=== PATIENT | female | born 2000 | race Asian ===

== ENCOUNTER 2022-05-02 14:06 | Outpatient (CLI) | payer BC, SELFPAY ==
--- OUTSIDE RECORDS SUMMARY | 2022-05-02 14:09 | XMS_ITS | Continuity of Care Document ---
:2002 Author Organization [facility] Care Team Providers Name Role Phone [facility] Unavailable Unavailable Social History Combined list of available smoking, tobacco, and other social history from [facility] of Defense and[facility]eter[facility] Affairs facilities. Social History Type Response Date Comment Source This section is an empty social history section. DoD
[2022-05-02 16:25] LABS: Vitamin D 25 Hydroxy* 32 ng/mL (30-80)
== END 2022-05-02 14:07 | disposition home or self-care (01) ==
LOC: NFLDREF 14:07
PROVIDERS: Visit Provider Nurse Practitioner Family
DX: Z79.899 Other long term (current) drug therapy (principal); F31.9 Bipolar disorder, unspecified
CPT/HCPCS: 82306

== ENCOUNTER 2022-07-24 15:13 | Outpatient (CLI) | payer BC, SELFPAY ==
[2022-07-24 17:37] LABS: HCG Qualitative Serum* Negative (Negative)
[2022-07-24 18:06] LABS: Vitamin D 25 Hydroxy* 16 ng/mL (30-80)
[2022-07-24 18:19] LABS: Hepatitis B Surface Antigen* Negative (Negative)
[2022-07-24 18:28] LABS: HIV 1/2/P24 Combo Screen* Negative (Negative)
[2022-07-24 18:36] LABS: Hepatitis C Virus Antibody* Negative (Negative)
[2022-07-24 18:57] LABS: Chlamydia DNA Amplified* NOT DETECTED (No Detected); GC DNA Amplified* NOT DETECTED (No Detected)
[2022-07-27 00:45] LABS: Rapid Plasma Reagin (RPR) Non Reactive (Non Reactive)
== END 2022-07-24 15:14 | disposition home or self-care (01) ==
PROVIDERS: Visit Provider Physician Assistant
DX: R63.5 Abnormal weight gain (principal); R79.89 Other specified abnormal findings of blood chemistry; N39.0 Urinary tract infection, site not specified; Z11.3 Encounter for screening for infections with a predominantly sexual mode of transmission; Z79.899 Other long term (current) drug therapy
CPT/HCPCS: 82306; 84703; 86592; 86703; 86803; 87340; 87491; 87591

== ENCOUNTER 2022-07-25 10:54 | Outpatient (CLI) | payer BC, SELFPAY | END 2022-07-25 10:55 | disposition home or self-care (01) | PROVIDERS: Visit Provider Physician Assistant | DX: R10.2 Pelvic and perineal pain; N39.0 Urinary tract infection, site not specified | CPT/HCPCS: 86592; 87086; 87186 ==

== ENCOUNTER 2022-12-08 16:07 | Outpatient (CLI) | payer BC, SELFPAY ==
[2022-12-08 22:08] LABS: Chlamydia DNA Amplified* NOT DETECTED (No Detected); GC DNA Amplified* NOT DETECTED (No Detected)
== END 2022-12-08 16:08 | disposition home or self-care (01) ==
PROVIDERS: Visit Provider Obstetrics & Gynecology
DX: Z11.3 Encounter for screening for infections with a predominantly sexual mode of transmission (principal)
CPT/HCPCS: 0353U; 86592; 86703; 86706; 86803; 87340; 87491; 87591

== ENCOUNTER 2022-12-14 11:10 | Outpatient (CLI) | payer BC, SELFPAY | END 2022-12-14 11:11 | disposition home or self-care (01) | LOC: NFLDREF 12-15 04:41 | PROVIDERS: Visit Provider Nurse Practitioner Family | DX: Z79.899 Other long term (current) drug therapy (principal) | CPT/HCPCS: 80053; 80061; 82306; 84443 ==

== ENCOUNTER 2023-05-04 10:28 | Outpatient (CLI) | payer BC, SELFPAY ==
[2023-05-04 14:45] LABS: Chlamydia DNA Amplified* NOT DETECTED (No Detected); GC DNA Amplified* NOT DETECTED (No Detected)
== END 2023-05-04 10:29 | disposition home or self-care (01) ==
LOC: NFLDREF 10:31
PROVIDERS: Visit Provider Physician Assistant
DX: N89.8 Other specified noninflammatory disorders of vagina (principal)
CPT/HCPCS: 87491; 87591

== ENCOUNTER 2023-05-29 14:09 | Outpatient (CLI) | payer BC, SELFPAY | END 2023-05-29 14:10 | disposition home or self-care (01) | PROVIDERS: Visit Provider Physician Assistant | DX: R79.89 Other specified abnormal findings of blood chemistry (principal); Z11.3 Encounter for screening for infections with a predominantly sexual mode of transmission | CPT/HCPCS: 82306; 86592; 86703; 86803; 87340; 87491; 87591 ==

== ENCOUNTER 2023-09-25 15:56 | Outpatient (CLI) | payer BC, SELFPAY ==
--- OUTSIDE RECORDS SUMMARY | 2023-09-25 15:59 | XMS_ITS | Continuity of Care Document ---
Author Name [facility] Organization [facility] Care Team Providers Care Upward Bound Director Name Role Phone [facility] Unavailable Unavailable Social History Combined list of available smoking, tobacco, and other social history from Department of Defense and Veterans Affairs facilities. Social History Type Response Date Comment Sourc e This section is an empty social history section. DoD
--- OUTSIDE RECORDS SUMMARY | 2023-09-25 15:59 | XMS_ITS | Clinical Summary ---
Author Name Unknown Organization [facility] Address [place], [place] [address] Care Team Providers Care Professor Of Environmental Studies Name Role Phone LucJosselyn to Silvina VIRAMONTES Primary Care Provider Allergies No known active allergies Medications Medication Sig Dispensed Refills Start Date End Date Status norethin malik-eth estrad-fe, 1-20 mg-mcg, (LOESTRIN FE 09/15; JUNEL FE 09/15) tablet 0 Active buPROPion (WELLBUTRIN SR) 100 mg Sustained-Release tablet Take 1 Tablet (100 mg) by mouth two times daily. 0 05/03/2022 Active ARIPiprazole (Abilify) 10 mg tablet Take 1 Tablet (10 mg) by mouth once daily. 0 05/03/2022 Active Social History Tobacco Use Types Packs/Day Years Used Date Smoking Tobacco: Never Smokeless Tobacco: Never Tobacco Cessation:Counseling Given: Yes Social Connections Answer Date Recorded Frequency of Communication with Friends and Fami ly Not on file 05/03/2022 Sex and Gender Information Value Date Recorded Sex Assigned at Not on file Gender Identity Not on file Sexual Orientation Not on file Obstetrics History Last Filed Vital Signs Vital Sign Reading Time Taken Comments Blood Pressure 116/60 05/03/2022 1:33 PM CDT Pulse 89 05/03/2022 1:33 PM CDT Temperature - - Respiratory Rate - - Oxygen Saturation 99% 05/03/2022 1:33 PM CDT Inhaled Oxygen Concentration - - Weight 51.1 kg (112 lb 9.6 oz) 05/03/2022 1:33 P M CDT Height - - Body Mass Index - - Plan of Treatment Health Maintenance Due Date Last Done Comments HPV series for age 9-26 (1 - 2-dose series) 2013 Tdap 2013 Depression screening for age 12+ 2014 HIV for age 15-65 2017 Chlamydia for age 16-24 2018 BMI (ht and wt on same day) for age 18+ 2020 Hepatitis C screening for ag e 18-79 2020 Tetanus booster 2022 COVID-19 vaccine series ( season) 2023 08/07/2021 Influenza for age 9-49 04/27/2023 Pap test for age 21-65 2023 Meningococcal series for age 11-21 Aged Out No longer eligible based on patient's age to complete this topic Pneumococcal series for age 6-64 Aged Out No longer eligible based on patient's age to complete this topic Care Teams Professor Of Environmental Studies Relationship Specialty Start Date End Date Josselyn Coyle CNM [address] [place] [address] PCP - General Certified Nurse Sales Engineer Account Manager 05/03/22
[2023-09-25 21:59] LABS: Chlamydia DNA Amplified* Not Detected (No Detected); GC DNA Amplified* Not Detected (No Detected)
== END 2023-09-25 15:57 | disposition home or self-care (01) ==
PROVIDERS: Visit Provider Physician Assistant
DX: Z11.3 Encounter for screening for infections with a predominantly sexual mode of transmission (principal)
CPT/HCPCS: 86592; 86703; 86803; 87340; 87491; 87591

== ENCOUNTER 2023-12-26 15:50 | Outpatient (CLI) | payer BC, SELFPAY ==
--- OUTSIDE RECORDS SUMMARY | 2023-12-26 15:53 | XMS_ITS | Clinical Summary ---
Author Name Unknown Organization [facility] Address [place], [place] [address] Care Team Providers Care Pension Consultant Name Role Phone Josselyn Coyle Silvina VIRAMONTES Primary Care Provider [phone] Allergies No known active allergies Medications Medication Sig Dispensed Refills Start Date End Date Status norethin malik-eth estrad-fe, 1-20 mg-mcg, (LOESTRIN FE 09/15; JUNEL FE 09/15) tablet Active buPROPion (WELLBUTRIN SR) 100 mg Sustained-Release [...] Health Maintenance Due Date Last Done Comments Tdap 2013 Depression screening for age 12+ 2014 HIV for age 15-65 2017 HPV series for age 9-26 (1 - 3-dose series) 2017 Chlamydia for age 16-24 2018 BMI (ht and wt on same day) for age 18+ 2020 Hepatitis C screening for ag e 18-79 2020 Tetanus booster 2022 COVID-19 vaccine series ( season) 2023 08/07/2021 Influenza for age 9-49 04/27/2024 Pap test for age 21-65 09/25/2026 4, 09/25/2023 Meningococcal series for age 11-21 Aged Out No longer eligible b ased on patient's age to complete this topic Pneumococcal series for age 6-64 Aged Out No longer eligible b ased on patient's age to complete this topic Procedures Procedure Name Priority Date/Time Associated Diagnosis Comments CADD INSTRUCTOR THIN PREP PAP SCREEN IMAGED Routine 09/25/2023 12:00 PM SLIP BOX CHANGER from Last 3 Months or Most Recently Relevant to Health Maintenance Results * (ABNORMAL) CADD INSTRUCTOR THIN PREP PAP SCREEN IMAGED (09/25/2023 12:00 PM SLIP BOX CHANGER) Case Report Gynecologic Cytology Report ? Case: [id number] ? Authorizing Provider: ??María Sutton PA-C ?Collected: ? 09/25/2023 1200 ? Ordering Location: ? [facility] CENTRAL LAB ?Received: ?09/26/2023 1649 ? First Screen: ?Mrii Osorio ? Pathologist: ? Izabela King MD ? Specimen: ?CADD INSTRUCTOR ThinPrep Vial Screening, Cervical ? 10/04/2023 11:57 AM [facility] ENTRAL LABORATORY INTERPRETATION/ RESULT ATYPICAL SQUAMOUS CELLS OF UNDETERMINED SIGNIFICANCE (ASCUS)(A) (none) 10/04/2023 11:57 AM [facility] LABORATORY IMEN ADEQUACY Satisfactory for evaluation Endocervical component present 10/04/2023 11:57 AM [facility] LABORATORY HPV REQUEST HPV not requested 10/04/2023 11:57 AM [facility] ENTRIL LABORATORY Date of LMP 10/04/2023 11:57 AM [facility] ENTRIL LABORATORY Comment:unk Last Pap Date 10/04/2023 11:57 AM [facility] ENTRIL LABORATORY Comment:unk Abnormal Pap or [place] Bx in last 5 years No 10/04/2023 11:57 AM [facility] ENTRIL LABORATORY Menstrual Status Regular Periods 10/04/2023 11:57 AM [facility] LABORATORY [place] Bx Done Today No 10/04/2023 11:57 AM [facility] ENTRIL LABORATORY Additional Information 10/04/2023 11:57 AM [facility] ENTRIL LABORATORY Comment: Interpreted at [facility] [employer] ??? [facility], Central Laboratory - [address], [place] [address] Automated Review Successful 10/04/2023 11:57 AM SLIP BOX CHANGER [facility] LABORATORY-C ENTRAL LABORATORY Comment:Specimen processed s uccessfully by automated dining room host device, ThinPrep Imaging System, [employer] Note The pap test is a screening technique, not a diagnostic procedure. It is used primarily to screen for squamous cancers and precursor lesions. Published studies have shown that it is subject to both false negative and false positive results. The pap test should not be used as the sole means to diagnose or exclude pre-malignant and malignant lesions. 10/04/2023 11:57 AM SLIP BOX CHANGER [facility] LABORATORY-C ENTRAL LABORATORY Other (Cervical) 09/25/2023 12:00 PM SLIP BOX CHANGER 09/26/2023 4:49 PM SLIP BOX CHANGER November Lesley [facility]OLOG[facility]-CENTRAL LABORATORY [address] [place] [address], from Last 3 Months or Most Recently Relevant to Health Maintenance Care Teams Pension Consultant Relationship Specialty Start Date End Date Josselyn Coyle CNM [address] [place] [address] PCP - General Certified Nurse Animal Cop 05/03/22
--- OUTSIDE RECORDS SUMMARY | 2023-12-26 15:53 | XMS_ITS | Continuity of Care Document ---
Author Name [facility] Organization [facility] Care Team Providers Care Men'S Golf Coach Name Role Phone [facility] Unavailable Unavailable Social History Combined list of available smoking, tobacco, and other social history from Department of Defense and Veterans Affairs facilities. Social History Type Response Date Comment Sourc e This section is an empty social history section. DoD
[2023-12-26 18:22] LABS: Chlamydia DNA Amplified* NOT DETECTED (No Detected); GC DNA Amplified* NOT DETECTED (No Detected)
== END 2023-12-26 15:51 | disposition home or self-care (01) ==
PROVIDERS: Visit Provider Registered Nurse
DX: Z11.3 Encounter for screening for infections with a predominantly sexual mode of transmission (principal)
CPT/HCPCS: 82306; 86592; 86703; 86803; 87340; 87491; 87591

== ENCOUNTER 2024-05-27 12:40 | Outpatient (CLI) | payer BC, SELFPAY ==
--- OUTSIDE RECORDS SUMMARY | 2024-05-27 12:45 | XMS_ITS | Clinical Summary ---
Author Organization [facility] Address [place], [place] [address] Care Team Providers Care Manufacturing Test Technician Name Role Phone Josselyn Coyle Silvina VIRAMONTES Primary Care Provider Allergies No [...] booster 2022 COVID-19 vaccine series ( season) 2024 08/07/2021 Influenza for age 9-49 04/27/2024 Pap test for age 21-65 09/25/2026 4, 09/25/2023 Meningococcal series for age 11-21 Aged Out No longer eligible b ased on patient's age to complete this topic Pneumococcal series for age 6-64 Aged Out No longer eligible b ased on patient's age to complete this topic Procedures Procedure Name Priority Date/Time Associated Diagnosis Comments INDUSTRIAL GAS SERVICER HELPER THIN PREP PAP SCREEN IMAGED Routine 09/25/2023 12:00 PM RESEARCH CHEMIST from Last 3 Months or Most Recently Relevant to Health Maintenance Results * (ABNORMAL) INDUSTRIAL GAS SERVICER HELPER THIN PREP PAP SCREEN IMAGED (09/25/2023 12:00 PM RESEARCH CHEMIST) Case Report Gynecologic Cytology Report ? Case: [id number] ? Authorizing Provider: ??María Stuton PA-C ?Collected: ? 09/25/2023 1200 ? Ordering Location: ? [facility] CENTRAL LAB ?Received: ?09/26/2023 1649 ? First Screen: ?Miri Osorio ? Pathologist: ? Izabela King MD ? Specimen: ?INDUSTRIAL GAS SERVICER HELPER ThinPrep Vial Screening, Cervical ? 10/04/2023 11:57 AM [facility]- ENTRAL LABORATORY INTERPRETATION/ RESULT ATYPICAL SQUAMOUS CELLS OF UNDETERMINED SIGNIFICANCE (ASCUS)(A) (none) 10/04/2023 11:57 AM [facility] LABORATORY IMEN ADEQUACY Satisfactory for evaluation Endocervical component present 10/04/2023 11:57 AM [facility] ENTRPR LABORATORY HPV REQUEST HPV not requested 10/04/2023 11:57 AM [facility] ENTRAL LABORATORY Date of LMP 10/04/2023 11:57 AM [facility] ENTRPR LABORATORY Comment:unk Last Pap Date 10/04/2023 11:57 AM [facility] ENTRAL LABORATORY Comment:unk Abnormal Pap or [place] Bx in last 5 years No 10/04/2023 11:57 AM [facility] ENTRAL LABORATORY Menstrual Status Regular Periods 10/04/2023 11:57 AM [facility] ENTRPR LABORATORY [place] Bx Done Today No 10/04/2023 11:57 AM [facility] ENTRAL LABORATORY Additional Information 10/04/2023 11:57 AM [facility] ENTRPR LABORATORY Comment: Interpreted at [facility], Central Laboratory - [address], [place] [address] Automated Review Successful 10/04/2023 11:57 AM RESEARCH CHEMIST [facility] LABORATORY-C ENTRAL LABORATORY Comment:Specimen processed s uccessfully by automated vibrating screed operator device, ThinPrep Imaging System, [employer] Note The pap test is a screening technique, not a diagnostic procedure. It is used primarily to screen for squamous cancers and precursor lesions. Published studies have shown that it is subject to both false negative and false positive results. The pap test should not be used as the sole means to diagnose or exclude pre-malignant and malignant lesions. 10/04/2023 11:57 AM RESEARCH CHEMIST [facility] LABORATORY-C ENTRAL LABORATORY Other (Cervical) 09/25/2023 12:00 PM RESEARCH CHEMIST 09/26/2023 4:49 PM RESEARCH CHEMIST November Lesley [facility]-CENTRAL LABORATORY [address] [place] [address], from Last 3 Months or Most Recently Relevant to Health Maintenance Care Teams Manufacturing Test Technician Relationship Specialty Start Date End Date Josselyn Coyle CNM [address] [place] [address] PCP - General Certified Nurse Textile Converter 05/03/22
--- OUTSIDE RECORDS SUMMARY | 2024-05-27 12:45 | XMS_ITS | Continuity of Care Document ---
Author Name [facility] Organization [facility] Care Team Providers Care Iron Miner Blasting Name Role Phone [facility] Unavailable Unavailable Social History Combined list of available smoking, tobacco, and other social history from Department of Defense and Veterans Affairs facilities. Social History Type Response Date Comment Sourc e This section is an empty social history section. DoD
--- NOTE | 2024-05-27 13:00 | CRLHL7_ITS ---
For Patients: As a result of the Century Cures Act, medical imaging exams and procedure reports are released immediately into your electronic medical record. You may view this report before your referring provider. If you have questions, please contact your health care provider. INDICATION: Follow-up liver lesion TECHNIQUE: 1.5 T MRI of the abdomen was performed with pre and postcontrast T1 weighted imaging; T2 weighted imaging; diffusion weighted imaging; in and out of phase imaging. 15 mL Dotarem IV COMPARISON: Follow-up liver lesion FINDINGS: Lungs: The lung bases are clear. No pleural or pericardial effusion. Liver: Homogeneous liver parenchyma. There is signal dropout of the hepatic parenchyma on out of phase imaging. Large T1 and T2 isointense mass within the right inferior hepatic lobe measuring 6.7 x 7.1 cm (15/47) that is mildly arterially hyperenhancing and isoenhancing relative to the adjacent hepatic parenchyma on portal venous and delayed sequences. There is a central region of hypoenhancement which may represent a central scar. Biliary tree and gallbladder: No intra or extrahepatic biliary dilation. Fluid-filled gallbladder without stones. Spleen: Unremarkable Pancreas: Normal pancreatic parenchyma. No pancreatic masses. No pancreatic duct dilation. Adrenal glands: Unremarkable. Kidneys and ureters: No renal masses or hydronephrosis. GI tract: No evidence of obstruction or inflammation. Vasculature: The IVC and aorta are patent. No abdominal aortic aneurysm. Lymph nodes: No lymphadenopathy. Abdominal wall: Unremarkable Bones: Bone marrow signal is within normal limits IMPRESSION: 1. Large right inferior hepatic lobe lesion measuring up to 7.1 cm with signal characteristics most suggestive of focal nodular hyperplasia. Repeat MRI with Eovist could be performed for confirmation. If this is not performed, repeat MRI in 6 months should be performed to ensure stability and exclude malignancy. 2. Hepatic steatosis. Dictated by Isadora Bhakta MD @ 05/29/2024 3:44:04 PM (Electronically Signed)
== END 2024-05-27 12:41 | disposition home or self-care (01) ==
PROVIDERS: Visit Provider Internal Medicine Gastroenterology
DX: K76.9 Liver disease, unspecified (principal); K76.0 Fatty (change of) liver, not elsewhere classified
CPT/HCPCS: 74183; A9575

== ENCOUNTER 2024-06-05 14:41 | Outpatient (CLI) | payer BC, SELFPAY ==
--- OUTSIDE RECORDS SUMMARY | 2024-06-05 14:44 | XMS_ITS | Clinical Summary ---
Author Organization [facility] Address [place], [place] [address] Care Team Providers Care Multimedia Engineer Name Role Phone Josselyn Coyle ANA M Primary Care Provider Allergies No known active [...] Procedure Name Priority Date/Time Associated Diagnosis Comments COILER OPERATOR THIN PREP PAP SCREEN IMAGED Routine 09/25/2023 12:00 PM DRIER OPERATOR HEAD from Last 3 Months or Most Recently Relevant to Health Maintenance Results * (ABNORMAL) COILER OPERATOR THIN PREP PAP SCREEN IMAGED (09/25/2023 12:00 PM DRIER OPERATOR HEAD) Case Report Gynecologic Cytology Report ? Case: [id number] ? Authorizing Provider: ??María Sutton PA-C ?Collected: ? 09/25/2023 1200 ? Ordering Location: ? [facility] CENTRAL LAB ?Received: ?09/26/2023 1649 ? First Screen: ?Miri Osorio ? Pathologist: ? Izabela King MD ? Specimen: ?COILER OPERATOR ThinPrep Vial Screening, Cervical ? 10/04/2023 11:[address] [facility]- ENTRAL LABORATORY INTERPRETATION/ RESULT ATYPICAL SQUAMOUS CELLS OF UNDETERMINED SIGNIFICANCE (ASCUS)(A) (none) 10/04/2023 11:[address] [facility] LABORATORY IMEN ADEQUACY Satisfactory for evaluation Endocervical component present 10/04/2023 11:57 AM [facility] ENTRCA LABORATORY HPV REQUEST HPV not requested 10/04/2023 11:57 AM [facility] ENTRAL LABORATORY Date of LMP 10/04/2023 11:57 AM [facility] ENTRCA LABORATORY Comment:unk Last Pap Date 10/04/2023 11:57 AM [facility] ENTRAL LABORATORY Comment:unk Abnormal Pap or [place] Bx in last 5 years No 10/04/2023 11:57 AM [facility] ENTRAL LABORATORY Menstrual Status Regular Periods 10/04/2023 11:57 AM [facility] ENTRCA LABORATORY [place] Bx Done Today No 10/04/2023 11:57 AM [facility] ENTRAL LABORATORY Additional Information 10/04/2023 11:[address] [facility] [facility] ENTRCA LABORATORY Comment: Interpreted at [facility], Central Laboratory - [address], [place] [address] Automated Review Successful 10/04/2023 11:57 AM DRIER OPERATOR HEAD [employer] LABORATORY-C ENTRAL LABORATORY Comment:Specimen processed s uccessfully by automated surface water technician device, ThinPrep Imaging System, [employer] Note The pap test is a screening technique, not a diagnostic procedure. It is used primarily to screen for squamous cancers and precursor lesions. Published studies have shown that it is subject to both false negative and false positive results. The pap test should not be used as the sole means to diagnose or exclude pre-malignant and malignant lesions. 10/04/2023 11:57 AM DRIER OPERATOR HEAD [employer] LABORATORY-C ENTRAL LABORATORY Other (Cervical) 09/25/2023 12:00 PM DRIER OPERATOR HEAD 09/26/2023 4:49 PM DRIER OPERATOR HEAD November Lesley [facility] LABORAT[facility]-CENTRAL LABORATORY [address] [place] [address], from Last 3 Months or Most Recently Relevant to Health Maintenance Care Teams Multimedia Engineer Relationship Specialty Start Date End Date Josselyn Coyle CNM [address] [place] [address] PCP - General Certified Nurse Equity Structurer 05/03/22
--- OUTSIDE RECORDS SUMMARY | 2024-06-05 14:44 | XMS_ITS | Continuity of Care Document ---
Author Name [facility] Organization [facility] Care Team Providers Care Assistant City Attorney Name Role Phone [facility] Unavailable Unavailable Social History Combined list of available smoking, tobacco, and other social history from Department of Defense and Veterans Affairs facilities. Social History Type Response Date Comment Sourc e This section is an empty social history section. DoD
--- NOTE | 2024-06-05 15:00 | CRLHL7_ITS ---
For Patients: As a result of the Century Cures Act, medical imaging exams and procedure reports are released immediately into your electronic medical record. You may view this report before your referring provider. If you have questions, please contact your health care provider. CLINICAL HISTORY: abnormal bleeding post IUD insertion TECHNIQUE: 2D magallon scale and color Doppler images were acquired of the pelvis using a transvaginal approach. FINDINGS: On transvaginal imaging, the myometrium has a normal uniform echotexture. The uterus measures 6.9 x 2.4 x 3.3 cm. The endometrial lining appears normal and measures 3.6 mm in thickness. IUD is present in the mid endometrial canal. The left ovary measures 3.7 x 1.2 x 1.9 cm in size and the right ovary measures 3.4 x 1.4 x 1.6 cm. The ovaries demonstrate normal arterial and venous blood flow on color Doppler analysis. There are no suspicious fluid collections within the cul-de-sac. IMPRESSION: IUD in the mid endometrial canal. No endometrial fluid. Dictated by Del Gutiérrez MD @ 06/06/2024 10:21:30 AM (Electronically Signed)
== END 2024-06-05 14:42 | disposition home or self-care (01) ==
LOC: US 14:41
PROVIDERS: Visit Provider Obstetrics & Gynecology
DX: N93.9 Abnormal uterine and vaginal bleeding, unspecified (principal); Z30.431 Encounter for routine checking of intrauterine contraceptive device
CPT/HCPCS: 76830

== ENCOUNTER 2024-10-31 09:11 | Outpatient (CLI) | payer BC, SELFPAY | END 2024-10-31 09:12 | disposition home or self-care (01) | LOC: MRI 09:15 | PROVIDERS: Visit Provider Internal Medicine Gastroenterology | DX: K76.9 Liver disease, unspecified (principal); R16.0 Hepatomegaly, not elsewhere classified; R19.8 Other specified symptoms and signs involving the digestive system and abdomen; K59.09 Other constipation; R12 Heartburn; K62.5 Hemorrhage of anus and rectum | CPT/HCPCS: 74183; A9575 ==